=== PATIENT | female | born 1995 | race Two or more races ===

== ENCOUNTER 2020-07-11 10:27 | Emergency (ER) | payer OTHER ==
[~2020-07-11] VITALS: Ht 139.7 cm; Wt 62.1 kg
--- NOTE | 2020-07-11 10:33 | NUR ---
at bedside to examine pt.
[2020-07-11] MEDS ORDERED: HYDR-3980 PO (11:13)
--- NOTE | 2020-07-11 11:28 | NUR ---
DCD instructions and prescription given to pt. imaging also provided as ordered. pt. intructed to maintain lue immobilized. Pt's mother at bedside and signed documentation
== END 2020-07-11 11:25 | disposition home or self-care (01) ==
LOC: ER 10:27
DX: S42.291A Other displaced fracture of upper end of right humerus, initial encounter for closed fracture (principal); W19.XXXA Unspecified fall, initial encounter; Y92.89 Other specified places as the place of occurrence of the external cause; Y99.8 Other external cause status; G82.20 Paraplegia, unspecified
CPT/HCPCS: 73030; 73060; A4663

== ENCOUNTER 2022-10-14 18:18 | Emergency (ER) | payer OTHER ==
[~2022-10-14] VITALS: Ht 139.7 cm; Wt 50.8 kg
[~2022-10-14 18:18] MED LIST: HYDR-3980 PO
[2022-10-14 20:35] VITALS: BP 98/68; TEMP 98.2; O2SAT 99
== END 2022-10-14 20:20 | disposition home or self-care (01) ==
LOC: ER 18:23
DX: S50.01XA Contusion of right elbow, initial encounter (principal); Z79.899 Other long term (current) drug therapy; W18.39XA Other fall on same level, initial encounter; Y93.89 Activity, other specified; Y92.89 Other specified places as the place of occurrence of the external cause; Y99.8 Other external cause status
CPT/HCPCS: 73080; A4663